=== PATIENT | female | born 1975 | race American Indian/Alaskan Native ===

== ENCOUNTER 2017-08-14 09:11 | Outpatient (CLI) | payer OTHER ==
--- NOTE | 2017-08-14 10:17 | XRay Report ---
CERVICAL SPINE, 3 views: History: Chronic neck pain. Findings: The vertebral bodies, disk spaces, posterior elements and prevertebral soft tissues are unremarkable. The dens is intact. There is minor anterior spurring at C4-5. No acute fracture or malalignment is identified. Impression: Minimal degenerative changes at C4-5.
--- NOTE | 2017-08-14 10:18 | XRay Report ---
LUMBOSACRAL SPINE, 3 VIEWS: History: Chronic back pain Findings: The vertebral bodies, disk spaces and posterior elements are intact. No compression deformity or malalignment. The SI joints are symmetric and unremarkable. Mild degenerative endplate spurring is identified throughout the lumbar region. Mild facet arthropathy at L2-3. Impression: Mild lumbar spondylosis. No acute process.
== END 2017-08-14 09:12 | disposition home or self-care (01) ==
LOC: XRAY 09:11
PROVIDERS: ATTEND Internal Medicine
DX: M47.896 Other spondylosis, lumbar region (principal); M47.892 Other spondylosis, cervical region; M12.88 Other specific arthropathies, not elsewhere classified, other specified site; M53.82 Other specified dorsopathies, cervical region; I10 Essential (primary) hypertension; M79.7 Fibromyalgia; J45.909 Unspecified asthma, uncomplicated
CPT/HCPCS: 72040; 72100